=== PATIENT | female | born 2005 | race Two or more races ===

== ENCOUNTER 2024-03-25 14:25 | Emergency (ER) | payer OTHER ==
[~2024-03-25] VITALS: Ht 165.1 cm; Wt 85.0 kg
[2024-03-25] MEDS ORDERED: LORAZEPAM 2MG/ML INJ IM ONE (15:00)
[2024-03-25] MEDS ORDERED: DIPHENHYDRAMINE 50MG/ML VIAL IM ONE (15:00)
[2024-03-25] MEDS: LORAZEPAM 2MG/ML INJ IM NR (16:19)
[2024-03-25] MEDS: HALOPERIDOL LACTATE 5MG/ML VIAL IM PRN (16:19)
[2024-03-25] MEDS: DIPHENHYDRAMINE 50MG/ML VIAL IM NR (16:19)
[2024-03-25] MEDS: MIDAZOLAM HCL 2 MG/2 ML VIAL IM ONE (17:30)
[2024-03-25 18:00] VITALS: O2SAT 98
[2024-03-25 18:18] LABS: CLARITY URINE CLOUDY (CLEAR); COLOR URINE DARK YELLOW (YELLOW); GLUCOSE URINE NEGATIVE (NEGATIVE); KETONES URINE 3+ (NEGATIVE); LEUKOCYTE ESTERASE URINE 1+ (NEGATIVE); NITRITE URINE NEGATIVE (NEGATIVE); OCCULT BLOOD URINE NEGATIVE (NEGATIVE); PROTEIN URINE 1+ (NEGATIVE); SPECIFIC GRAVITY URINE 1.034 (1.005-1.030)
[2024-03-25 18:37] LABS: *AMPHETAMINES SCREEN URINE NEGATIVE (NEGATIVE)
[2024-03-25 18:38] LABS: *BARBITURATES SCREEN URINE NEGATIVE (NEGATIVE); *BENZODIAZEPINES SCREEN URINE PRESUMPTIVE POSITIVE (NEGATIVE); *COCAINE SCREEN URINE PRESUMPTIVE POSITIVE (NEGATIVE); CANNABINOID URINE SCREEN PRESUMPTIVE POSITIVE (NEGATIVE); ECSTASY MDMA SCREEN URINE NEGATIVE (NEGATIVE); METHADONE URINE SCREEN NEGATIVE (NEGATIVE); OPIATES URINE SCREEN NEGATIVE (NEGATIVE); PHENCYCLIDINE URINE SCREEN NEGATIVE (NEGATIVE)
[2024-03-25 18:40] LABS: BASOPHILS % 0.3 % (0.0-2.0); EOSINOPHILS % 0.2 % (0.0-5.0); HEMATOCRIT. 45.4 % (36.0-48.0); HEMOGLOBIN. 15.1 g/dL (12.0-16.0); LYMPHOCYTES % 30.6 % (20.0-50.0); MEAN CORPUSCULAR HEMOGLOBIN 31.2 pg (28.0-32.0); MEAN CORPUSCULAR HGB CONC 33.2 g/dL (31.0-37.0); MEAN CORPUSCULAR VOLUME 93.9 fL (81.0-99.0); MEAN PLATELET VOLUME 8.3 fl (7.4-10.4); MONOCYTES % 4.7 % (2.0-8.0); NEUTROPHILS % 64.2 % (40.0-76.0); PLATELET 298 x1000/uL (130-400); RED BLOOD CELL COUNT 4.83 mill/uL (4.2-5.4); RED CELL DISTRIBUTION WIDTH 14.6 % (11.6-14.6); WHITE BLOOD COUNT 10.7 x1000/uL (4.5-11.0)
[2024-03-25 18:43] LABS: CHLORIDE 108 mEq/L (98-107); POTASSIUM 3.7 mEq/L (3.5-5.1); SODIUM 140 mEq/L (136-145)
[2024-03-25 18:44] LABS: CARBON DIOXIDE 22 mEq/L (21-32)
[2024-03-25 18:49] LABS: GLUCOSE 94 mg/dL (70-105); UREA NITROGEN BLOOD 11 mg/dL (9-23)
[2024-03-25 18:50] LABS: BACTERIA URINE 4+; RBC URINE 0-2 /hpf (0-2); SQUAMOUS EPITHELIAL CELL URINE 3+ /lpf (RARE/1+)
[2024-03-25 18:51] LABS: ACETAMINOPHEN < 2 ug/mL (10-30); ETHANOL BLOOD < 10 mg/dL (<10); HCG SCREEN NEGATIVE
[2024-03-25] MEDS: NITROFURANTOIN 100MG M/M CAPSULE PO STA (20:30)
[2024-03-26] MEDS: NITROFURANTOIN 100MG M/M CAPSULE PO STA (03:36)
[2024-03-26] MEDS: DIPHENHYDRAMINE 50MG/ML VIAL IM NR (07:56)
[2024-03-26] MEDS: LORAZEPAM 2MG/ML INJ IM NR (07:56)
[2024-03-26] MEDS: HALOPERIDOL LACTATE 5MG/ML VIAL IM NR (07:57)
[2024-03-26] MEDS ORDERED: DIPHENHYDRAMINE 50MG/ML VIAL IM STA (07:59)
[2024-03-26] MEDS ORDERED: HALOPERIDOL LACTATE 5MG/ML VIAL IM NR (08:00)
[2024-03-26] MEDS ORDERED: OLANZAPINE 10 MG/VIAL IM ONE (08:00)
[2024-03-26] MEDS ORDERED: LORAZEPAM 2MG/ML INJ IM ONE (08:00)
[2024-03-27] MEDS: OLANZAPINE 10 MG/VIAL IM ONE (02:30)
[2024-03-27] MEDS: LORAZEPAM 2MG/ML INJ IM ONE (02:30)
[2024-03-27] MEDS: OLANZAPINE 5MG TABLET ODT PO SCH (09:00)
[2024-03-27 12:00] VITALS: BP 136/72; PULSE 82; RESP 16; TEMP 36.55848; O2SAT 99
[2024-03-27] MEDS ORDERED: OLANZAPINE 5MG TABLET ODT PO SCH (21:00)
== END 2024-03-27 14:48 | disposition left against medical advice (07) ==
LOC: ER 14:25
DX: R45.850 Homicidal ideations (principal); F31.9 Bipolar disorder, unspecified; R45.1 Restlessness and agitation; Z20.822 Contact with and (suspected) exposure to COVID-19
CPT/HCPCS: 80305; 80048; 81003; 80307; 80329; 80320; 84703; 85025; 36415; 96372 ×3; 99291; 87426; J1200 ×2; J1630 ×2; J2060 ×3; J2250; J3490; G0480